=== PATIENT | female | born 1985 | race Caucasian/White ===

== ENCOUNTER 2016-11-29 | Inpatient (IN) | payer OTHER ==
[~2016-11-29] VITALS: Ht 165.1 cm; Wt 88.5 kg
--- NOTE | ~2016-11-29 | DS ---
Unit #: [id number] #: [id number] Patient: SANJEEV HODGE [id number] [facility] [address] [place] [address] [id number] MR#: [id number] NAME: SANJEEV HODGE. ROOM: P252 Age: 31 Sex: F Admission Date: 11/29/2016 : 1985 Discharge Date: 12/02/2016 Attending Physician: Kvng Nina M.D. Primary Care Physician: Primary Care Physician No DISCHARGE SUMMARY IDENTIFYING DATA Ms. Hodge is a 31-year-old single white female, who is a resident of [place], [place], and was self-referred to the hospital. DISCHARGE DIAGNOSES Psychiatric: Major depressive disorder, recurrent, moderate, without psychotic features; alcohol abuse, moderate. Medical: Hypothyroidism. Stressors: Moderate psychosocial stressors. HISTORY OF PRESENT ILLNESS Please see initial psychiatric evaluation for details. PAST PSYCHIATRIC HISTORY Please see initial psychiatric evaluation for details. PAST MEDICAL HISTORY Please see initial psychiatric evaluation for details. HOSPITAL COURSE The patient was admitted [facility] and was oriented to the hospital environment. Routine p.r.n. medications were initiated, and she was started back on her home medications including her Celexa and Wellbutrin, and the patient was seen to be exhibiting rather oppositional behavior and trying to actively mask and minimize her presentation, stating that she does not need to be here and they does not see wrong with her; however, she was taking the medications regularly and Wellbutrin as such was increased to 300 mg a day with good tolerability and therapeutic response. She was denying any suicidal ideations, intent, or plan and was wanting to go home and as such, it was decided that she will be discharged home and will continue treatment on an outpatient basis. DISCHARGE MEDICATIONS Celexa 20 mg a day for depression and Wellbutrin XL 300 mg in the morning for depression. DISCHARGE CONDITION Stable. PROGNOSIS Fair. Unit #: [id number] #: [id number] Patient: SANJEEV HODGE Dictated by... Priyanka James/yordyl TD: 12/02/2016 08:19 JOB #: [id number] DISCHARGE SUMMARY Page 1 of 1 X Kvng Nina MD DISCHARGE SUMMARY
--- NOTE | ~2016-11-29 | PA ---
Unit #: [id number] #: [id number] Patient: SANJEEV HODGE [id number] [facility] [address] [place] [address] [id number] I MR#: [id number] NAME: SANJEEV HODGE ROOM: P252 Age: 31 Sex: F Admission Date: 11/29/2016 : 1985 Date of Assessment: 11/29/2016 Attending Physician: Kvng Nina M.D. Admitting Physician: Kvng Nina M.D. Primary Care Physician: Primary Care Physician No PSYCHIATRIC ASSESSMENT DATE OF SERVICE 11/29/2016. IDENTIFYING DATA Ms. Hodge is a 31-year-old single white female, who is a resident of [place], [place], and was self-referred to the hospital on a voluntary basis. CHIEF COMPLAINT "I've been depressed." HISTORY OF PRESENT ILLNESS Ms. Hodge is a 31-year-old white female with history of mood disorder and alcohol abuse, who was brought to the hospital, and upon presentation, reports increasing depression, anxiety, irritability, restlessness, psychomotor agitation, disturbed sleep and appetite, anhedonia, feelings of hopelessness and helplessness, and suicidal ideation with thoughts of shooting herself and the patient's friend will have to remove the gun from home. Meanwhile, the patient denies any previous history of suicide attempt, though reports that she recently has been having suicidal ideations and now reports having a plan to shoot herself with a gun and was seen to be a significant threat to herself and therefore recommendation for inpatient level of care for safety and stabilization was made and the patient was transferred to us. SUBSTANCE ABUSE HISTORY The patient reports history of alcohol abuse and reports that she has been drinking since she was 22 years old, but reports that she currently has been drinking 1 to 2 shots of bourbon on a daily basis and denies any other drug abuse. PAST PSYCHIATRIC HISTORY The patient has had a history of outpatient psychiatric treatment. Review of the medical records indicate that she is supposed to be on a combination psychotropic medications, though it is not clear if she has been compliant with the medication as she has not been able to show a therapeutic response. PAST MEDICAL HISTORY The patient's medical history is significant for hypothyroidism and migraine headaches. ALLERGIES Unit #: [id number] #: [id number] Patient: SANJEEV HODGE No known medication allergies. PERSONAL AND SOCIAL HISTORY A 31-year-old white female, who reports that she is single, unemployed, and lives alone and has poor social support system. MENTAL STATUS EXAMINATION Young white female, who was casually dressed with fair personal hygiene, appears to be in no acute distress or discomfort. She was awake and alert on interaction with intact orientation to time, place, and person. Her mood was anxious and depressed with a congruent affect. Her speech was slow and goal directed. She reports having suicidal ideations, but denies homicidal ideations and also denies any auditory or visual hallucinations. Her insight and judgment remain slightly impaired. DIAGNOSTIC IMPRESSION Psychiatric: Major depressive disorder, recurrent, moderate, without psychotic features and alcohol abuse, moderate. Medical: Hypothyroidism. Stressors: Moderate psychosocial stressors. TREATMENT PLAN 1. The patient has presented with a history of mood disorder and substance abuse and we will recommend inpatient hospitalization for safety and stabilization. We will start her back on her home medications and we will adjust the medications and monitor response. 2. Supportive therapy was provided to the patient. 3. Safe, structured, and nourishing environment will be provided. ESTIMATED LENGTH OF STAY 5 to 7 days. ABILITY TO HELP SELF Limited. WILLINGNESS TO HELP SELF The patient appears to be willing to help self. STRENGTHS 1. Communicative. 2. Cooperative. PROBLEMS 1. Chronic dysphoric symptoms. 2. Poor social support system. DISCHARGE CRITERIA This will be contingent upon the patient's ability to show resolution of her depression and anxiety and her ability to stay safe to herself, particularly after discharge from the hospital. Dictated by... Priyanka James/brenda TD: 11/29/2016 14:23 Unit #: [id number] #: [id number] Patient: SANJEEV HODGE JOB #: [id number] PSYCHIATRIC ASSESSMENT Page 1 of 1 X Kvng Nina MD PSYCHIATRIC ASSESSMENT
--- NOTE | ~2016-11-29 | PN ---
Unit #: [id number] #: [id number] Patient: SANJEEV HODGE [id number] [facility] [address] [place] [address] [id number] MR#: [id number] NAME: SANJEEV HODGE ROOM: P252 Age: 31 Sex: F Admission Date: 11/29/2016 : 1985 Attending Physician: Kvng Nina M.D. Admitting Physician: Kvng Nina M.D. Primary Care Physician: Primary Care Physician Sarah HAMMER PROGRESS NOTES DATE OF SERVICE 12/01/2016 DISCUSSION Ms. Hodge is a 31-year-old white female who was seen today. Chart was reviewed and case was discussed with the staff. She has been anxious, withdrawn, and rather seclusive to herself. Meanwhile, she has been cooperative with the treatment recommendations and has been taking the medications and tolerating them fairly well with no reported side effects. MENTAL STATUS EXAMINATION Young white female who is casually dressed with fair personal hygiene, appears to be in no acute distress or discomfort. She was awake and alert on interaction with intact orientation. Her mood is anxious with a congruent affect. She denies any suicidal or homicidal ideations. Her insight and judgment remain slightly impaired. TREATMENT PLAN 1. We will continue her on her current medications and treatment protocol. We will monitor her response to the medications and make further adjustments as needed. 2. We will continue to follow up. Dictated by... Kvng Nina M.D. IAA/bzg TD: 12/01/2016 13:02 JOB #: [id number] [facility] PROGRESS NOTES Page 1 of 1 X Kvng Nina MD PROGRESS NOTE
--- NOTE | ~2016-11-29 | HP ---
Unit #: [id number] #: [id number] Patient: FERNANDA PULLIAM [id number] [place] [address] [id number] MR#: [id number] NAME: FERNANDA PULLIAM. ROOM: P252 Age: 31 Sex: F Admission Date: 11/29/2016 : 1985 Attending Physician: Kvng Nina M.D. Admitting Physician: Kvng Nina M.D. Primary Care Physician: Primary Care Physician No HISTORY AND PHYSICAL HISTORY OF PRESENT ILLNESS Fernanda is a 31-year-old female admitted on 11/29/[address] [place] [address] for suicidal ideation with a plan to see herself. PAST MEDICAL HISTORY Hyperthyroidism, hyperlipidemia, restless legs syndrome, and migraines. PAST SURGICAL HISTORY Tonsillectomy. SOCIAL HISTORY No tobacco or illegal drug use. Does report occasional alcohol use. She is currently single and living alone. FAMILY HISTORY Noncontributory. REVIEW OF SYSTEMS CONSTITUTIONAL: No fever or chills. HEENT: Denies any sore throat, ear pain or runny nose. CARDIOVASCULAR: Denies chest pain, irregular heart rhythm or palpitations. CHEST: Denies shortness of breath or cough. No hemoptysis. GASTROINTESTINAL: Denies nausea, vomiting, diarrhea or chronic constipation. ENDOCRINE: Denies history of increased thirst or urination. No recent significant weight loss or gain. GENITOURINARY: Denies dysuria, frequency, or hematuria. SKIN: Denies any rashes. HEMATOLOGIC: Denies history of increased bleeding or bruising. MUSCULOSKELETAL: Denies any hot, swollen joints. No generalized muscle pain. NEUROLOGIC: Denies problems with vision or speech. No frequent, severe headaches. No numbness, tingling or weakness in any extremities. Denies loss of bladder or bowel control. CURRENT MEDICATIONS Orsythia, LEAVE COORDINATOR Thyroid, simvastatin, topiramate, Wellbutrin, Celexa, and Neurontin. ALLERGIES No known drug allergies. PHYSICAL EXAMINATION Unit #: [id number] #: [id number] Patient: FERNANDA PULLIAM GENERAL: Alert, oriented, no acute distress. VITAL SIGNS: Blood pressure 141/89, heart rate 61, respirations 16, and temperature 98.6. HEIGHT: 5 feet 5. WEIGHT: 195 pounds. SKIN: Warm, dry. No rashes or lesions, track burgess, cuts, etc. HEENT: Normocephalic. TMs not viewed. Oronasal passages clear. Conjunctivae clear. PERRLA. EOM is intact. NECK: No lymphadenopathy or thyromegaly. HEART: Regular rate and rhythm. No murmur, gallop, or rub. LUNGS: Clear to auscultation bilaterally. ABDOMEN: Soft, nontender without palpable masses or hepatosplenomegaly. : Not assessed. EXTREMITIES: No evidence of cyanosis, clubbing, or edema. Moves all extremities independently without obvious deficit. NEUROLOGICAL: Grossly within normal limits. Cranial Nerves: II: Visual chu are intact. III, IV AND : Extraocular movements are intact. Pupils are equal, round and reactive to light. V: Facial sensation is grossly normal. VII: Facial movements and expression are normal. VIII: Auditory acuity grossly intact. IX, X: Uvula is midline. Phonation is normal. XI: Patient shrugs shoulders and turns head normally. XII: Tongue protrudes in the midline. Sensory and Motor Function: Sensory and motor sensation is grossly normal. Motor: moves all extremities well. Coordination: Gait is normal. Deep Tendon Reflexes: Intact. IMPRESSION 1. Psychiatric admission. 2. Hyperthyroidism. 3. Hyperlipidemia. 4. Migraine headaches. 5. Restless legs syndrome. RECOMMENDATIONS PSYCHIATRIC: Per psychiatrist. MEDICAL: No contraindication to participating in facility's activities. MEDICAL PROGNOSIS Good. MEDICAL CONDITION Stable. Dictated by... Alma Faye TD: 11/30/2016 10:35 JOB #: [id number] Unit #: [id number] #: [id number] Patient: FERNANDA PULLIAM HISTORY AND PHYSICAL Page 1 of 1 X BIB PAREDES APRN HISTORY AND PHYSICAL
--- NOTE | ~2016-11-29 | PN ---
Unit #: [id number] #: [id number] Patient: SANJEEV HODGE [id number] [facility] [address] [place] [address] [id number] I MR#: [id number] NAME: SANJEEV HODGE ROOM: P252 Age: 31 Sex: F Admission Date: 11/29/2016 : 1985 Attending Physician: Kvng Nina M.D. Admitting Physician: Kvng Nina M.D. Primary Care Physician: Primary Care Physician Sarah HAMMER PROGRESS NOTES DATE OF SERVICE: 11/30/2016 SUBJECTIVE Ms. Hodge is a 31-year-old white female, who was seen today and chart was reviewed and case was discussed with the staff. She has been anxious, withdrawn, though has been showing very negative attitude towards treatment and has been making statements that she does not feel comfortable here and that her mother has been calling to sign her out and she was told that she came in with depression and suicidal thoughts and with a plan to shoot herself with a gun and she now has been manipulating her story stating that she did not say anything about suicide and that she was not suicidal, even though her medical records indicate clear documentation of suicidal thoughts with intent and plan, needing an inpatient psychiatric hospitalization, it appears that the patient has been manipulating the system and as such, appears to be a poor and unreliable historian. MENTAL STATUS EXAMINATION Young white female who was casually dressed with fair personal hygiene, appears to be in no acute distress or discomfort. She was awake and alert with impaired attention and concentration. Her mood was anxious and depressed with a congruent affect. Her speech was slow and restricted in content. She denies any suicidal or homicidal ideations. Her insight and judgment remain slightly impaired. TREATMENT PLAN 1. We will continue on her current medications and treatment protocol. We will monitor her response and we will increase her Wellbutrin XL to 300 mg in the morning and maintain Celexa 20 mg a day. We will encourage the patient to show better compliance with treatment recommendations. 2. We will continue to follow up. Dictated by... Priyanka James/brenda TD: 11/30/2016 23:06 JOB #: [id number] Unit #: [id number] #: [id number] Patient: SANJEEV HODGE Kelly HAMMER PROGRESS NOTES Page 1 of 1 X Kvng Nina MD PROGRESS NOTE
[2016-11-29 09:57] LABS: ALBUMIN SERUM 3.8 g/dL (3.5-5.0); BILIRUBIN,TOTAL 0.5 mg/dL (0.2-2.0); CALCIUM SERUM 9.2 mg/dL (8.4-10.2); GLOM FILT RATE Estimated 76.1 mL/min (>60); POTASSIUM 4.1 mmol/L (3.5-5.1); PROTEIN TOTAL SERUM 6.8 g/dL (6.0-8.3)
[2016-11-30 09:34] LABS: BASOPHIL# 0.1 X10e3 (0-0.3); BASOPHIL% 0.7 % (0-2.5); EOSINOPHIL# 0.1 X10e3 (0-0.7); EOSINOPHIL% 1.1 % (0.0-7.0); HEMATOCRIT 41.7 % (35.0-45.0); HEMOGLOBIN 13.8 gm/dL (12.0-16.0); LYMPHOCYTE# 2.3 X10e3 (1.0-3.5); LYMPHOCYTE% 30.1 % (17.0-45.0); MEAN CELL VOLUME 89.1 FL (83-96); MEAN CORPUSCULAR HEMOGLOBIN 29.5 PG (28-34); MEAN CORPUSCULAR HGB CONC 33.1 g/dL (30-36); MEAN PLATELET VOLUME 8.2 FL (6.5-11.5); MONOCYTE# 0.6 X10e3 (0-1.0); MONOCYTE% 8.2 % (3.0-12.0); NEUTROPHIL# 4.6 X10e3 (1.5-7.1); NEUTROPHIL% 59.9 % (40-75); PLATELET COUNT 312 X10e3 (140-420); RED BLOOD COUNT 4.68 X10e (3.90-5.30); RED CELL DISTRIBUTION WIDTH 13.1 % (11.0-15.5); WHITE BLOOD COUNT 7.8 X10e3 (4.0-10.5)
[2016-11-30 09:44] LABS: DIFF IND NO
[2016-12-01 09:52] LABS: URINE APPEARANCE CLEAR; URINE BILIRUBIN NEG (NEG); URINE BLOOD 3+ (NEG); URINE COLOR YELLOW; URINE GLUCOSE NEG (NEG); URINE KETONE NEG (NEG); URINE LEUKOCYTE ESTERASE TRACE (NEG); URINE NITRATE NEG (NEG); URINE PH 7.5 (5-8); URINE PROTEIN NEG (NEG); URINE SPECIFIC GRAVITY 1.013 (1.003-1.035)
[2016-12-01 09:55] LABS: URBCS1 AUWI 100-200 /[HPF] (0-2); URINE BACTERIA AUWI NEG (NEGATIVE); URINE SQUAMOUS EPITHELIAL CELL NONE SEEN /[HPF]; UWBCS1 AUWI 0-2 (0-5)
[2016-12-01 10:48] LABS: AMPHETAMINE NEG (NEG); BARBITURATES NEG (NEG); BENZODIAZEPINES NEG (NEG); COCAINE NEG (NEG); MARIJUANA NEG (NEG); OPIATES NEG (NEG); TRICYCLIC ANTIDEPRESSANTS NEG (NEG); U METHADONE NEG (NEG)
== END 2016-12-02 10:45 | disposition home or self-care (01) | DRG 885 ==
LOC: P2L 03:26 → P2S 03:26 → P2L 16:38
PROVIDERS: Psychiatry & Neurology Psychiatry
DX: F33.1 Major depressive disorder, recurrent, moderate (principal); R45.851 Suicidal ideations; F10.20 Alcohol dependence, uncomplicated; E03.9 Hypothyroidism, unspecified; E78.5 Hyperlipidemia, unspecified; G43.909 Migraine, unspecified, not intractable, without status migrainosus; G25.81 Restless legs syndrome
CPT/HCPCS: 80053; 80307; 81003; 84703; 85025